=== PATIENT | male | born 1995 | race Caucasian/White ===

== ENCOUNTER 2020-01-28 09:51 | Outpatient (CLI) | payer OTHER ==
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
== END 2020-01-28 09:52 | disposition home or self-care (01) ==
LOC: SC 09:51
PROVIDERS: ATTEND Internal Medicine Pulmonary Disease
DX: R06.83 Snoring (principal); G47.10 Hypersomnia, unspecified; R53.83 Other fatigue; G47.8 Other sleep disorders; E66.9 Obesity, unspecified; Z68.31 Body mass index [BMI] 31.0-31.9, adult

== ENCOUNTER 2020-02-26 20:23 | Outpatient (CLI) | payer OTHER | END 2020-02-26 20:24 | disposition home or self-care (01) | LOC: SC 20:23 | PROVIDERS: ATTEND Internal Medicine Pulmonary Disease | DX: G47.33 Obstructive sleep apnea (adult) (pediatric) (principal); E66.9 Obesity, unspecified; Z68.31 Body mass index [BMI] 31.0-31.9, adult | CPT/HCPCS: 95811 ==

== ENCOUNTER 2020-03-25 14:45 | Outpatient (CLI) | payer OTHER ==
--- NOTE | 2020-03-25 15:43 | SLEEP CARE CONSULTATION ---
Information from patient questionnaire entered by Romi Carlson. I have reviewed and concur with the information entered by Romi Carlson. This document represents the service I personally performed and the decisions made by me, Jina Mendez, RN, MSN, [employer]. History of Present Illness Service Date and Time: 03/25/2020 1445 Initial [place] Sleepiness Scale score: 13 (in 2020) Current [place] Sleepiness Scale score: 9 Additional HPI information: [place] returns for follow up and results of the recently performed split polysomnography / manual tiration study. I explained the pathophysiology behind obstructive sleep apnea. We then spent quite a bit of time discussing different treatment options. For mild obstructive sleep apnea, surgery and oral appliance are alternatives to nasal CPAP therapy but in moderate or severe cases, nasal CPAP is the most effective and reliable treatment. I reviewed the impact of weight changes on sleep apnea and strongly recommended losing weight. After some discussion, the patient opted to go with the nasal CPAP therapy. Nasal autoCPAP set at 9 cmH20 will be ordered as per titration study results. I explained how CPAP machine works with sample devices RespirVerid Dreamstation and [employer] [id number] and what to expect when using the machine. Using CPAP every night in order to get used to it was emphasized. Patient advised to put CPAP mask on before getting into bed so as not to fall asleep without CPAP. To assist acclimation to CPAP use, it could also be used for a short time during day while reading or watching TV. The patient was instructed to call the CPAP supplier to discuss any mechanical problem that may occur. If the mask given is uncomfortable or is difficult to keep on through the night even with adjustment, contact the CPAP supplier as many will replace with another mask style if notified before 30 days. If snoring or perceives is not getting enough air or too much air from the machine, notify this office. AAS patient education PAP tips reviewed and given to patient. Patient counseled not drink alcohol less than 4 hours before bedtime as it can increase snoring and apnea. Patient was cautioned about risks of drowsy driving until sleepiness symptoms resolve. Patient denies drowsy driving. AAS patient education on snoring and sleep apnea given and reviewed. Sleep Study - Results Type of Sleep Study: Polysomnography (split night) Polysomnography/Home Sleep Study results: DIAGNOSTIC: The patient had normal sleep efficiency. The sleep architecture was abnormal for sleep fragmentation and lack of REM sleep. Respiratory monitoring showed very severe obstructive sleep apneahypopnea (AHI = 96.0) associated with frequent arousals, oxyhemoglobin desaturation and moderate hypoxia (geovanni oxygen saturation of 78%). The respiratory events occurred independently of sleep stage and body position. Snoring was very loud in intensity. There was no significant periodic limb movement of sleep. THERAPEUTIC: CPAP at 9 cmH2O appeared to be optimal (AHI of 2.3 per hour on the pressure). There was supine REM sleep on the pressure. Oxygen saturation was normal throughout the night. Lower CPAP settings appeared adequate as well. The patient appeared to have tolerated positive airway pressure therapy well. The patients sleep efficiency was slightly reduced. The sleep architecture was normal. There was no significant periodic limb movement of sleep. Cardiac rhythm was normal sinus rhythm without significant arrhythmia. No abnormal behavior (parasomnia) observed during the night. Allergies and Home Medications Known drug allergies: No Home medication list reviewed: No (no routine medications - NSAID prn ) Review of Systems Review of systems same as previous: Yes Physical Exam Blood Pressure: 120/80 Cuff size: long Heart Rate: 77 O2 Saturation: 98 Height: 6 ft Weight: 238 lb Body Mass Index: 32.3 BMI Classification: Obese Impression and Plan 1. Obstructive Sleep Apnea-Hypopnea Syndrome, extremely severe, with lowest oxygen saturation of 78%. Obviously this is the cause of the patients symptoms of unrefreshed sleep, and excessive daytime sleepiness. As mentioned above, the patient will be started on nasal autoCPAP therapy with pressure set at 9 cmH2O. Due to severity of apnea and moderate hypoxia, an urge nt set up will be requested. * Nasal auto CPAP therapy, pressure at 9 cm H2O. - urgent set up * Attempt to lose weight. * Avoid alcohol consumption near bedtime. * The patient is again cautioned about driving until sleepiness completely resolves. * Return one month after CPAP obtained. I will assess response to therapy and compliance at that time. Visit Type: In Office Time Spent with Patient (minutes): 30 Provider Statement: I spent 100% of the Face to Face Visit with the patient with greater than 50% spent counseling the patient and coordination of care.
[2020-03-25 17:10] VITALS: BP 120/80
== END 2020-03-25 14:46 | disposition home or self-care (01) ==
LOC: SC 14:45
PROVIDERS: ATTEND Nurse Practitioner Family
DX: G47.33 Obstructive sleep apnea (adult) (pediatric) (principal); E66.9 Obesity, unspecified; Z68.32 Body mass index [BMI] 32.0-32.9, adult
CPT/HCPCS: 99212; 99214

== ENCOUNTER 2021-04-25 15:47 | Outpatient (CLI) | payer OTHER ==
[2021-04-25] MEDS ORDERED: ALBUTEROL 1 PUFF INH STA (17:19)
== END 2021-04-25 15:48 | disposition home or self-care (01) ==
LOC: RT 15:47
PROVIDERS: ATTEND Internal Medicine Sleep Medicine
DX: U07.1 COVID-19 (principal); J12.82 Pneumonia due to coronavirus disease 2019
CPT/HCPCS: 94060; 94664; 94727; 94729

== ENCOUNTER 2022-07-13 15:42 | Outpatient (CLI) | payer OTHER ==
[2022-07-13 16:29] VITALS: BP 126/74
--- NOTE | 2022-07-13 16:29 | SLEEP CARE CONSULTATION ---
Information from patient questionnaire entered by Sarita Delacruz. I have reviewed and concur with the information entered by Sarita Delacruz. This document represents the service I personally performed and the decisions made by me, Paige Mijares ARNP. History of Present Illness Service Date and Time: 07/13/2022 1542 Previous diagnosis: Extremely Severe, Obstructive Sleep Apnea-Hypopnea Syndrome AHI: 96 (02/2020) Reason for follow up: annual (LAST SEEN 03/2020) Accompanied by: Spouse (María) Equipment type: CPAP Equipment obtained from: Other ([facility]; getting supplies as needed) Mask style: Nasal Mask brand: Respironics ([place]) Backup mask available: Yes (other mask supplies) Last cushion change: 2 weeks Prior sleep studies: Yes Year and Where: 2019 [facility] HPI additional information: [place] was diagnosed to have extremely severe, AHI 96, obstructive sleep apnea-hypopnea syndrome and returned today for CPAP therapy annual follow- up. Sleep Study - Results Prior sleep studies: No CPAP Compliance Data - Data Reviewed with Patient Average duration of nightly device use: 6 hrs, 5min, 14sec Compliance rate %: 99.4 (01/15/2022-07/13/2022; 179/180 days used) Current pressure setting (cmH2O): 9 Average residual AHI: 2.9 Central apnea: 0.1 Obstructive apnea: 1.6 Hypopnea: 1.2 Average large leak: 1.4 l/min Compliance data discussion: He has new replacement Dreamstation from [employer] that he got about 1 month. Subjective Patient concerns: reports: condensation in mask/hose (occasionally), dry mouth, nose, throat. denies: aerophagia, mask discomfort, air blowing in eyes, mask leak noise, nasal congestion, epistaxis Observed to snore while using device: Yes (sometimes) Current pressure setting perceived as: too low (sometimes) On therapy, patient: reports: sleeping better, awakening more refreshed, being more awake and alert during the day, more rested overall, other (having increasing unrefreshed sleep for 3-4 months). denies: drowsiness while driving Initial [place] Sleepiness Scale score: 13 (in 2019) Current [place] Sleepiness Scale score: 16 (07/13/2022) Allergies and Home Medications Drug allergies reviewed: Yes (NKDA) Home medication list reviewed: Yes (no changes) Review of Systems Review of systems same as previous: Yes (no changes) Physical Exam Vital signs obtained and entered by: SARITA Mendoza MA Blood Pressure: 126/74 (left arm) Cuff size: regular Heart Rate: 75 O2 Saturation: 97 Height: 6 ft Weight: 264 lb 9.6 oz Body Mass Index: 35.9 BMI Classification: Obese Impression and Plan 1. Obstructive Sleep Apnea-Hypopnea Syndrome, extremely severe, with good treatment compliance and good apnea control. On CPAP therapy, the patient has better sleep quality and is more rested overall. Patient feels like his pressure is low. He also has been having more days with unrefreshed sleep in the last 3-4 months since from the [place]. His states he is also snoring sometimes when using his CPAP. To resolve snore, the CPAP pressure will be changed to 10 cmH20. Patient advised to contact this office if pressure change uncomfortable or if pressure change does not resolve snore. Patient's apnea severity and rationale for treatment to reduce apnea, improve sleep quality and reduce cardiovascular and cerebrovascular events was reviewed. 2. Obesity, unspecified. Currently patients BMI is 35.9. Obesity increases the risk of apnea, CPAP pressure requirements and overall health risks especially cardiovascular and diabetes. Thus patient is advised to lose weight. * Change auto CPAP pressure to 10 cmH2O * Update supplies * Notify me if snoring with mask or feeling that the pressure is too much or too little * Attempt to lose weight * Call this office if any problems using CPAP * Return for follow up in 1 year, or sooner if concerns arise Counseling Topics: Spare mask, Weight loss health impact Visit Type: In Office Other Participants: Spouse/Significant Other Time Spent with Patient (minutes): 20 Provider Statement: I spent 100% of the Face to Face Visit with the patient with greater than 50% spent counseling the patient and coordination of care.
== END 2022-07-13 15:43 | disposition home or self-care (01) ==
LOC: SC 15:42
PROVIDERS: ATTEND Nurse Practitioner Family
DX: G47.33 Obstructive sleep apnea (adult) (pediatric) (principal); E66.9 Obesity, unspecified; Z68.35 Body mass index [BMI] 35.0-35.9, adult
CPT/HCPCS: 99212; 99213

== ENCOUNTER 2023-08-05 19:16 | Emergency (ER) | payer OTHER ==
[2023-08-05 19:34] VITALS: BP 150/90; O2SAT 97
[2023-08-05] MEDS ORDERED: IBUPROFEN 600 MG TABLET PO STA (19:59)
[2023-08-05] MEDS ORDERED: CYCLOBENZAPRINE 10 MG Prepack 2 PO PRN (21:49)
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
== END 2023-08-05 22:00 | disposition home or self-care (01) ==
LOC: ED 19:16
DX: S39.012A Strain of muscle, fascia and tendon of lower back, initial encounter (principal); V49.9XXA Car occupant (driver) (passenger) injured in unspecified traffic accident, initial encounter
CPT/HCPCS: 72100; 99283; A9270

== ENCOUNTER 2024-02-14 11:14 | Outpatient (CLI) | payer SELFPAY ==
--- NOTE | 2024-02-14 11:53 | Sleep Patient Instructions ---
Sleep Center Visit Summary - Patient Visit Information Reason for Visit: 7 month followup - Patient Instructions Additional Instructions: You were here for follow up of CPAP therapy. You will be continued on CPAP therapy with pressure at 10-12 cmH2O. Please let us know if the pressure change is uncomfortable and we can make further adjustments of the pressure. You should follow up with sleep care in 12 months. You may contact us sooner for any questions or concerns. - Clinic Information Contact: Merged with [facility] [address] [place] [id number] [email or web address] T: [phone]
--- NOTE | 2024-02-14 12:01 | SLEEP CARE CONSULTATION ---
Information from patient questionnaire entered by Sarita Delacruz. I have reviewed and concur with the information entered by Sarita Delacruz. This document represents the service I personally performed and the decisions made by me, Paige Mijares ARNP. History of Present Illness Service Date and Time: 02/14/2024 1114 Previous diagnosis: Extremely Severe, Obstructive Sleep Apnea-Hypopnea Syndrome AHI: 96 (02/2020) Reason for follow up: other (7 MONTH F/U) Accompanied by: Spouse Equipment type: CPAP (Dreamstation, recertified) Equipment obtained from: Other (none right now, [facility] Mask style: Nasal Mask brand: Respironics ([employer]) Backup mask available: No Last cushion change: 1 month Prior sleep studies: No Year and Where: 2019 [facility] HPI additional information: [place] was diagnosed to have extremely severe, AHI 96, obstructive sleep apnea-hypopnea syndrome and returned today for CPAP therapy 7 month follow-up. Sleep Study - Results Prior sleep studies: No Year and Where: 2019 [facility] CPAP Compliance Data - Data Reviewed with Patient Average duration of nightly device use: 6 HRS 44 MINS 26 SECS Compliance rate %: 97.3 (02/13/23-02/12/24; 365/365 days used) Current pressure setting (cmH2O): 10 Average residual AHI: 3.9 Central apnea: 0.1 Obstructive apnea: 1.6 Hypopnea: 2.2 Average large leak: 1 sec Subjective Patient concerns: reports: air blowing in eyes, mask leak noise, condensation in mask/hose (occasional), nasal congestion (in mornings), dry mouth, nose, throat. denies: aerophagia, mask discomfort, epistaxis Observed to snore while using device: Yes (according to ) Current pressure setting perceived as: too low On therapy, patient: reports: sleeping better, awakening more refreshed, being more awake and alert during the day, more rested overall. denies: drowsiness while driving Initial [place] Sleepiness Scale score: 13 (in 2019) Current [place] Sleepiness Scale score: 17 (02/14/24) Allergies and Home Medications Known drug allergies: No Drug allergies reviewed: Yes Home medication list reviewed: Yes (no changes) Allergy and home medication list: Allergies No Known Drug Allergies Allergy (Verified 02/13/24 09:35) Review of Systems Review of systems same as previous: Yes (NO CHANGE) Physical Exam Vital signs obtained and entered by: SARITA Mendoza MA Blood Pressure: 140/92 (LEFT ARM) Cuff size: long Heart Rate: 85 O2 Saturation: 98 Height: 6 ft Weight: 279 lb 12.8 oz Weight change since last visit: 15 lb gain Body Mass Index: 37.9 BMI Classification: Obese Impression and Plan 1. Obstructive Sleep Apnea-Hypopnea Syndrome, extremely severe, with good treatment compliance and good apnea control. On CPAP therapy, the patient has better sleep quality and is more rested overall. He complains of feeling more tired during the day. His says he is snoring when using the machine. He has gained about 15 pounds in last 7 months. Vashti feels like the pressure is too low. The patients pressure will be changed to autoCPAP 10-12 cmH20 to reduce snoring and for comfort. Patient advised to contact me if pressure change is uncomfortable so that it can be adjusted. Goals for apnea control discussed. He is also having some nasal congestion and dry mouth regularly. I advised him to try a chinstrap to keep mouth closed with his nasal mask and increase humidity as needed. He voiced understanding. Patient's apnea severity and rationale for treatment to reduce apnea, improve sleep quality and reduce cardiovascular and cerebrovascular events was reviewed. 2. Obesity, unspecified. Currently patients BMI is 37.9. Obesity increases the risk of apnea, CPAP pressure requirements and overall health risks especially cardiovascular and diabetes. Thus patient is advised to lose weight. * Change auto CPAP pressure to 10-12 cmH2O * Notify me if snoring with mask or feeling that the pressure is too much or too little * Attempt to lose weight * Call this office if any problems using CPAP * Return for follow up in 12 months, or sooner if concerns arise Adjust device pressure to (cmH2O): 10-12 Counseling Topics: Spare mask, Weight loss health impact Visit Type: In Office Time Spent with Patient (minutes): 27 Provider Statement: I spent 100% of the Face to Face Visit with the patient with greater than 50% spent counseling the patient and coordination of care.
[2024-02-14 12:03] VITALS: BP 140/92; O2SAT 98
== END 2024-02-14 11:15 | disposition home or self-care (01) ==
LOC: SC 11:14
PROVIDERS: ATTEND Nurse Practitioner Family
DX: G47.33 Obstructive sleep apnea (adult) (pediatric) (principal); E66.9 Obesity, unspecified; Z68.37 Body mass index [BMI] 37.0-37.9, adult
CPT/HCPCS: 99212; 99213